=== PATIENT | female | born 1950 | race African-American/Black ===

== ENCOUNTER 2016-12-20 18:53 | Emergency (ER) | payer MEDICAID, OTHER ==
[~2016-12-20] VITALS: Ht 162.6 cm; Wt 68.0 kg
[~2016-12-20 18:53] MED LIST: LISI40TA4 PO
[2016-12-21 02:15] VITALS: BP 153/80
== END 2016-12-21 02:15 | disposition home or self-care (01) ==
LOC: ER 18:53
DX: I83.93 Asymptomatic varicose veins of bilateral lower extremities (principal); I10 Essential (primary) hypertension; J44.9 Chronic obstructive pulmonary disease, unspecified; F17.210 Nicotine dependence, cigarettes, uncomplicated
CPT/HCPCS: 93971; 99284

== ENCOUNTER 2017-07-03 15:17 | Inpatient (IN) | payer MEDICAID ==
[~2017-07-03] VITALS: Ht 162.6 cm; Wt 68.0 kg
[2017-07-03] MEDS ORDERED: LABETALOL 5MG/ML SYR 20 MG/4 ML SYRINGE IV ONE (17:15)
[2017-07-03 17:44] LABS: BASOPHILS % 1.2 % (0.0-2.0); HEMATOCRIT. 44.9 % (36.0-48.0); HEMOGLOBIN. 15.3 g/dL (12.0-16.0); MEAN CORPUSCULAR HEMOGLOBIN 32.7 pg (28.0-32.0); MEAN PLATELET VOLUME 11.9 fl (7.4-10.4); MONOCYTES % 6.4 % (2.0-8.0); NEUTROPHILS % 84.4 % (40.0-76.0); PLATELET 149 x1000/uL (130-400); RED BLOOD CELL COUNT 4.68 mill/uL (4.2-5.4); RED CELL DISTRIBUTION WIDTH 13.9 % (11.6-14.6)
[2017-07-03 17:49] LABS: CHLORIDE 102 mEq/L (98-107); PARTIAL THROMBOPLASTIN TIME 24.2 sec (23.4-31.0); PROTHROMBIN TIME 10.4 sec (9.4-11.6)
[2017-07-03 17:55] LABS: CARBON DIOXIDE 26 mEq/L (21-32); ETHANOL BLOOD < 10 mg/dL; PHOSPHORUS 3.4 mg/dL (2.5-4.9)
[2017-07-03 17:58] LABS: TROPONIN I < 0.02 ng/mL (0.00-0.04)
[2017-07-03 17:59] LABS: CREATINE KINASE MB FRACTION 1.4 ng/mL (0.5-3.6)
[2017-07-03] MEDS ORDERED: HYDROCODONE/ACETAMINOPHEN 5/325MG TABLET PO ONE (20:15)
[2017-07-03] MEDS ORDERED: CLONIDINE 0.1MG TABLET PO ONE (20:15)
[2017-07-03] MEDS ORDERED: HYDRALAZINE 20MG/ML VIAL IV ONE (20:15)
[2017-07-04] MEDS ORDERED: HYDROCODONE/ACETAMINOPHEN 5/325MG TABLET PO PRN ×2 (03:45→10:45)
[2017-07-04] MEDS: HYDROCODONE/ACETAMINOPHEN 5/325MG TABLET PO PRN ×2 (04:04→09:14)
[2017-07-04 07:25] VITALS: BP 138/94
[2017-07-04 08:00] VITALS: BP_SYST 134; BP_SYST 143; BP_SYST 168; BP_DIAS 61; BP_DIAS 86; BP_DIAS 89
[2017-07-04] MEDS ORDERED: DIPHENHYDRAMINE 50MG/ML VIAL IV PRN (10:45)
[2017-07-04] MEDS ORDERED: IPRATROPIUM/ALBUTEROL 0.5-3(2.5)MG/3ML NEB INH PRN (10:45)
[2017-07-04] MEDS ORDERED: CLONIDINE 0.1MG TABLET PO PRN (10:45)
[2017-07-04] MEDS ORDERED: ONDANSETRON HCL 4MG/2ML VIAL IV PRN (10:45)
[2017-07-04 12:00] VITALS: BP 126/74
[2017-07-04 13:39] LABS: *AMPHETAMINES SCREEN URINE NEGATIVE (NEGATIVE); *BARBITURATES SCREEN URINE NEGATIVE (NEGATIVE); *BENZODIAZEPINES SCREEN URINE NEGATIVE (NEGATIVE); *COCAINE SCREEN URINE NEGATIVE (NEGATIVE); CANNABINOID URINE SCREEN NEGATIVE (NEGATIVE); METHADONE URINE SCREEN NEGATIVE (NEGATIVE); OPIATES URINE SCREEN PRESUMTIVE POSITIVE (NEGATIVE); PHENCYCLIDINE URINE SCREEN NEGATIVE (NEGATIVE)
[2017-07-04 16:00] VITALS: BP 159/79
[2017-07-04] MEDS: ACETAMINOPHEN 325MG TABLET PO PRN (16:24)
[2017-07-04] MEDS: CEFTRIAXONE 1 G PREMIX 50 ML IV SCH ×2 (18:00→18:19)
[2017-07-04] MEDS: DILTIAZEM HCL 30MG TABLET PO SCH (18:03)
[2017-07-04 20:00] VITALS: BP 143/78
[2017-07-05] VITALS (7 sets, daily range): BP systolic 133–167; BP diastolic 69–103
[2017-07-05] MEDS: DILTIAZEM HCL 30MG TABLET PO SCH ×2 (00:42→06:42)
[2017-07-05] MEDS: HYDROCODONE/ACETAMINOPHEN 5/325MG TABLET PO PRN ×3 (03:50→20:30)
[2017-07-05 07:39] LABS: EOSINOPHILS % 2.7 % (0.0-5.0); HEMATOCRIT. 38.7 % (36.0-48.0); HEMOGLOBIN. 13.1 g/dL (12.0-16.0); MEAN CORPUSCULAR HEMOGLOBIN 32.5 pg (28.0-32.0); MEAN CORPUSCULAR VOLUME 95.8 fL (81.0-99.0); MEAN PLATELET VOLUME 12.2 fl (7.4-10.4); MONOCYTES % 11.2 % (2.0-8.0); NEUTROPHILS % 67.1 % (40.0-76.0); PLATELET 120 x1000/uL (130-400); RED BLOOD CELL COUNT 4.04 mill/uL (4.2-5.4)
[2017-07-05 07:55] LABS: CARBON DIOXIDE 25 mEq/L (21-32); CHLORIDE 102 mEq/L (98-107); HDL CHOLESTEROL 97 mg/dL (40-59); LDL CHOLESTEROL 68 mg/dL (5-100)
[2017-07-05] MEDS ORDERED: CLON0.2T PO (11:53)
[2017-07-05] MEDS: DILTIAZEM HCL 60MG TABLET PO SCH ×2 (13:07→21:11)
[2017-07-05] MEDS: ACETAMINOPHEN 325MG TABLET PO PRN (13:22)
[2017-07-05 20:08] LABS: HEPATITIS B SURFACE ANTIGEN NEGATIVE
[2017-07-05 20:36] LABS: HEPATITIS B CORE AB IGM NEGATIVE
[2017-07-05 20:37] LABS: HEPATITIS A AB IGM NEGATIVE (NEGATIVE)
[2017-07-06 00:18] VITALS: BP 125/65
[2017-07-06] MEDS: HYDROCODONE/ACETAMINOPHEN 5/325MG TABLET PO PRN ×2 (02:08→11:04)
[2017-07-06 04:00] VITALS: BP 124/67
[2017-07-06] MEDS: DILTIAZEM HCL 60MG TABLET PO SCH (05:06)
[2017-07-06 06:26] LABS: BASOPHILS % 1.4 % (0.0-2.0); EOSINOPHILS % 4.1 % (0.0-5.0); HEMATOCRIT. 38.8 % (36.0-48.0); HEMOGLOBIN. 13.2 g/dL (12.0-16.0); LYMPHOCYTES % 25.9 % (20.0-50.0); MEAN CORPUSCULAR HEMOGLOBIN 32.8 pg (28.0-32.0); MEAN CORPUSCULAR VOLUME 96.5 fL (81.0-99.0); MEAN PLATELET VOLUME 12.2 fl (7.4-10.4); MONOCYTES % 13.7 % (2.0-8.0); NEUTROPHILS % 54.9 % (40.0-76.0); RED BLOOD CELL COUNT 4.02 mill/uL (4.2-5.4)
[2017-07-06 06:49] LABS: CARBON DIOXIDE 27 mEq/L (21-32); CHLORIDE 102 mEq/L (98-107)
[2017-07-06 08:29] VITALS: BP_SYST 128; BP_SYST 131; BP_SYST 151; BP_DIAS 60; BP_DIAS 83; BP_DIAS 86
[2017-07-06 08:40] LABS: PLATELET ESTIMATE NORMAL
[2017-07-06 08:41] LABS: PLATELET 130 x1000/uL (130-400)
[2017-07-06 12:00] VITALS: BP 152/70
[2017-07-06 12:21] VITALS: BP 145/70
== END 2017-07-06 13:25 | disposition home or self-care (01) | DRG 48 ==
LOC: ER 16:33 → 7WST 17:26 → EDBEDREQ 17:30 → ENRESERV 21:58 → 7WST 07-04 06:14
PROVIDERS: ADMIT Internal Medicine; ATTEND Internal Medicine
DX: G90.8 Other disorders of autonomic nervous system (principal); D69.6 Thrombocytopenia, unspecified; R55 Syncope and collapse; I48.91 Unspecified atrial fibrillation; I10 Essential (primary) hypertension; J44.9 Chronic obstructive pulmonary disease, unspecified; I16.0 Hypertensive urgency; F10.10 Alcohol abuse, uncomplicated; D63.8 Anemia in other chronic diseases classified elsewhere; R07.81 Pleurodynia; F17.210 Nicotine dependence, cigarettes, uncomplicated; W19.XXXA Unspecified fall, initial encounter; Z71.6 Tobacco abuse counseling; Y93.89 Activity, other specified; Y92.89 Other specified places as the place of occurrence of the external cause; Y99.8 Other external cause status
CPT/HCPCS: 36415; 70450; 71010; 71100; 80048; 80053; 80061; 80305; 82553; 83010; 83735; 83880; 84100; 84484; 85025; 85610; 85730; 86705; 86709; 86803; 87040; 87086; 87186; 87340; 93005; 93306; 93970; 96374; 96375; 99285; 99406; G0482; J0360; J0696; J3490; J7050

== ENCOUNTER 2017-07-17 06:12 | Emergency (ER) | payer MEDICAID ==
[~2017-07-17] VITALS: Ht 170.2 cm; Wt 68.0 kg
[~2017-07-17 06:12] MED LIST changes: +CLON0.2T PO
[2017-07-17] MEDS ORDERED: SODIUM CHLORIDE 0.9% 1,000 ML IV ONE (06:54)
[2017-07-17] MEDS ORDERED: HYDROCODONE/ACETAMINOPHEN 5/325MG TABLET PO STA (06:54)
[2017-07-17 07:16] LABS: EOSINOPHILS % 11.1 % (0.0-5.0); HEMATOCRIT. 38.9 % (36.0-48.0); HEMOGLOBIN. 13.3 g/dL (12.0-16.0); LYMPHOCYTES % 24.2 % (20.0-50.0); MEAN CORPUSCULAR HEMOGLOBIN 32.6 pg (28.0-32.0); MEAN CORPUSCULAR VOLUME 95.7 fL (81.0-99.0); MEAN PLATELET VOLUME 9.2 fl (7.4-10.4); MONOCYTES % 6.7 % (2.0-8.0); PLATELET 332 x1000/uL (130-400); RED BLOOD CELL COUNT 4.06 mill/uL (4.2-5.4); RED CELL DISTRIBUTION WIDTH 13.1 % (11.6-14.6)
[2017-07-17 07:26] LABS: PROTHROMBIN TIME 10.9 sec (9.4-11.6)
[2017-07-17 07:31] LABS: CARBON DIOXIDE 23 mEq/L (21-32); CHLORIDE 109 mEq/L (98-107); TROPONIN I < 0.02 ng/mL (0.00-0.04)
[2017-07-17 08:10] LABS: GLUCOSE URINE NEGATIVE (NEGATIVE); KETONES URINE NEGATIVE (NEGATIVE); LEUKOCYTE ESTERASE URINE NEGATIVE (NEGATIVE); NITRITE URINE NEGATIVE (NEGATIVE); OCCULT BLOOD URINE NEGATIVE (NEGATIVE); PH URINE 5.5 (4.5-8.0); PROTEIN URINE NEGATIVE (NEGATIVE); SPECIFIC GRAVITY URINE 1.009 (1.005-1.030); UROBILINOGEN URINE 0.2 E.U./dL (0.2-1.0)
[2017-07-17 08:15] LABS: CLARITY URINE CLEAR (CLEAR); COLOR URINE PALE YELLOW (YELLOW)
[2017-07-17 10:30] VITALS: BP 148/88
== END 2017-07-17 10:32 | disposition home or self-care (01) ==
LOC: ER 08:06
DX: S22.42XA Multiple fractures of ribs, left side, initial encounter for closed fracture (principal); Y04.2XXA Assault by strike against or bumped into by another person, initial encounter; Y93.89 Activity, other specified; Y92.89 Other specified places as the place of occurrence of the external cause; F17.210 Nicotine dependence, cigarettes, uncomplicated; J90 Pleural effusion, not elsewhere classified
CPT/HCPCS: 36415; 71010; 71250; 80053; 81003; 83690; 83880; 84484; 85025; 85610; 87086; 93005; 93970; 96360; 99285; J7030; Z7610

== ENCOUNTER 2019-04-03 22:33 | Emergency (ER) | payer MEDICAID ==
[~2019-04-03] VITALS: Ht 170.2 cm; Wt 74.0 kg
[2019-04-03] MEDS ORDERED: ONDANSETRON HCL 4MG/2ML INJ IV ONE (23:45)
[2019-04-03] MEDS ORDERED: KETOROLAC 15MG/ML VIAL IV ONE (23:45)
[2019-04-03] MEDS ORDERED: PROPOFOL 200MG/20ML VIAL IV ONE (23:45)
[2019-04-04] MEDS ORDERED: ONDANSETRON HCL 4MG/2ML INJ IV ONE (01:45)
[2019-04-04 07:00] VITALS: BP 112/59
== END 2019-04-04 07:15 | disposition home or self-care (01) ==
LOC: ER 23:07
DX: S82.852A Displaced trimalleolar fracture of left lower leg, initial encounter for closed fracture (principal); I10 Essential (primary) hypertension; I25.10 Atherosclerotic heart disease of native coronary artery without angina pectoris; J44.9 Chronic obstructive pulmonary disease, unspecified; F17.210 Nicotine dependence, cigarettes, uncomplicated; W01.0XXA Fall on same level from slipping, tripping and stumbling without subsequent striking against object, initial encounter; Y93.9 Activity, unspecified; Y92.9 Unspecified place or not applicable; Z95.0 Presence of cardiac pacemaker
CPT/HCPCS: 27818; 73590; 73600; 73610; 73620; 96374; 96375; 96376; 99152; 99285; J1885; J2405; J2704; Z7610

== ENCOUNTER 2025-05-08 12:56 | Inpatient (IN) | payer MEDICAID, MEDICARE ==
[~2025-05-08] VITALS: Ht 162.6 cm; Wt 67.6 kg
[~2025-05-08 12:56] MED LIST changes: +ASPI-1497 PO; +ATOR-2 PO; +CALC-977 PO; -CLON0.2T PO; +COR3 PO; +ESCI20TA37 PO; +FOLI-43 PO; +LISI40TA13 PO; -LISI40TA4 PO; +SACU1TAB PO; +SPIR25TA PO
[2025-05-08 12:57] VITALS: O2SAT 100
[2025-05-08] MEDS: SODIUM CHLORIDE 0.9% 1,000 ML IV ONE (14:07)
[2025-05-08 14:13] LABS: BASOPHILS % 1.1 % (0.0-2.0); EOSINOPHILS % 0.1 % (0.0-5.0); HEMATOCRIT. 36.7 % (36.0-48.0); HEMOGLOBIN. 12.2 g/dL (12.0-16.0); LYMPHOCYTES % 16.4 % (20.0-50.0); MEAN PLATELET VOLUME 11.5 fl (7.4-10.4); MONOCYTES % 8.5 % (2.0-8.0); NEUTROPHILS % 73.9 % (40.0-76.0); PLATELET 103 x1000/uL (130-400); RED BLOOD CELL COUNT 3.86 mill/uL (4.2-5.4); RED CELL DISTRIBUTION WIDTH 13.6 % (11.6-14.6)
[2025-05-08 14:27] LABS: CREATININE 1.0 mg/dL (0.6-1.0); UREA NITROGEN BLOOD 11 mg/dL (9-23)
[2025-05-08 14:28] LABS: TROPONIN I HIGH SENSITIVITY 22 ng/L (3.0-34)
[2025-05-08 15:11] LABS: CLARITY URINE CLEAR (CLEAR); COLOR URINE YELLOW (YELLOW); GLUCOSE URINE NEGATIVE (NEGATIVE); KETONES URINE NEGATIVE (NEGATIVE); LEUKOCYTE ESTERASE URINE NEGATIVE (NEGATIVE); NITRITE URINE NEGATIVE (NEGATIVE); OCCULT BLOOD URINE NEGATIVE (NEGATIVE); PH URINE 8.5 (4.5-8.0); PROTEIN URINE NEGATIVE (NEGATIVE); SPECIFIC GRAVITY URINE 1.013 (1.005-1.030); UROBILINOGEN URINE 1.0 E.U./dL (0.2-1.0)
[2025-05-08 15:22] LABS: *AMPHETAMINES SCREEN URINE NEGATIVE (NEGATIVE); *BARBITURATES SCREEN URINE NEGATIVE (NEGATIVE); *BENZODIAZEPINES SCREEN URINE NEGATIVE (NEGATIVE); *COCAINE SCREEN URINE NEGATIVE (NEGATIVE)
[2025-05-08 15:23] LABS: CANNABINOID URINE SCREEN NEGATIVE (NEGATIVE); ECSTASY MDMA SCREEN URINE NEGATIVE (NEGATIVE); METHADONE URINE SCREEN NEGATIVE (NEGATIVE); OPIATES URINE SCREEN NEGATIVE (NEGATIVE); PHENCYCLIDINE URINE SCREEN NEGATIVE (NEGATIVE)
[2025-05-08 15:47] LABS: ETHANOL BLOOD < 10 mg/dL (<10)
[2025-05-08 15:48] LABS: ASPARTATE AMINOTRANSFERASE 24 IU/L (<34)
[2025-05-08 15:49] LABS: BILIRUBIN DIRECT 0.2 mg/dL (<=3.0); BILIRUBIN TOTAL 0.8 mg/dL (0.1-1.0); PROTEIN TOTAL 6.1 g/dL (6.0-8.3)
[2025-05-08 17:46] LABS: INR 1.1
[2025-05-08 18:28] VITALS: BP 98/53; PULSE 66; TEMP 36.3; O2SAT 95
[2025-05-08 20:00] VITALS: BP 90/60; PULSE 66; TEMP 34.7; O2SAT 96
[2025-05-08] MEDS ORDERED: ONDANSETRON HCL 4MG/2ML INJ IV PRN (20:45)
[2025-05-08] MEDS ORDERED: ACETAMINOPHEN 325MG TABLET PO PRN ×2 (20:45)
[2025-05-08] MEDS ORDERED: DOCUSATE SODIUM 100MG CAPSULE PO PRN (20:45)
[2025-05-08] MEDS ORDERED: HYDRALAZINE 20MG/ML VIAL IV PRN (20:45)
[2025-05-08] MEDS ORDERED: SENNOSIDES/DOCUSATE SOD 8.6/50MG TABLET PO PRN (20:45)
[2025-05-08] MEDS ORDERED: IPRATROPIUM/ALBUTEROL 0.5-3(2.5)MG/3ML NEB HHN PRN (21:00)
[2025-05-08 22:00] VITALS: BP 90/61; PULSE 66; RESP 18; TEMP 34.6944
[2025-05-08] MEDS: ATORVASTATIN CALCIUM 40MG TABLET PO SCH (23:06)
[2025-05-08] MEDS: SODIUM CHLORIDE 0.9% 500 ML IV ONE (23:06)
[2025-05-09] VITALS: BP 86/40; PULSE 56; RESP 18; TEMP 36.2; O2SAT 97
[2025-05-09 01:44] LABS: CREATINE KINASE MB FRACTION < 0.5 ng/mL (0.5-3.6); PHOSPHORUS 2.5 mg/dL (2.5-4.9); TROPONIN I HIGH SENSITIVITY 17 ng/L (3.0-34)
[2025-05-09 04:00] VITALS: BP 82/42; PULSE 55; RESP 17; TEMP 36.2; O2SAT 95
[2025-05-09] MEDS: MIDODRINE HCL 2.5MG TABLET PO NR (04:46)
[2025-05-09] MEDS ORDERED: ATROPINE SULFATE 1MG/10ML SYR IV PRN (06:30)
[2025-05-09] MEDS: MIDODRINE HCL 5MG TABLET PO SCH (06:30)
[2025-05-09] MEDS ORDERED: ALBUTEROL (0.083%) 2.5MG/3ML NEB HHN NR (06:45)
[2025-05-09 08:00] VITALS: BP_SYST 108; BP_SYST 87; BP_DIAS 51; BP_DIAS 58; PULSE 52; PULSE 97; RESP 15; RESP 18; TEMP 36.4; TEMP 36.5; O2SAT 95; O2SAT 96
[2025-05-09 08:17] LABS: BASOPHILS % 1.0 % (0.0-2.0); EOSINOPHILS % 1.2 % (0.0-5.0); HEMATOCRIT. 35.0 % (36.0-48.0); HEMOGLOBIN. 11.8 g/dL (12.0-16.0); LYMPHOCYTES % 28.2 % (20.0-50.0); MEAN PLATELET VOLUME 12.0 fl (7.4-10.4); MONOCYTES % 14.6 % (2.0-8.0); NEUTROPHILS % 55.0 % (40.0-76.0); PLATELET 97 x1000/uL (130-400); RED BLOOD CELL COUNT 3.72 mill/uL (4.2-5.4); RED CELL DISTRIBUTION WIDTH 13.7 % (11.6-14.6)
[2025-05-09] MEDS: SODIUM ZIRCONIUM CYCLOSILICATE 10GM/PACKET PO NR (08:17)
[2025-05-09] MEDS: PANTOPRAZOLE SODIUM 40 MG/VIAL IV SCH (08:17)
[2025-05-09] MEDS: SODIUM BICARBONATE 8.4% 50MEQ/50ML SYR IV NR (08:17)
[2025-05-09 08:36] LABS: CREATININE 0.9 mg/dL (0.6-1.0); TRIGLYCERIDE 49 mg/dL (0-150); UREA NITROGEN BLOOD 14 mg/dL (9-23)
[2025-05-09 08:37] LABS: CREATINE KINASE MB FRACTION < 0.5 ng/mL (0.5-3.6); LDL CHOLESTEROL 47 mg/dL (5-100); TROPONIN I HIGH SENSITIVITY 13 ng/L (3.0-34)
[2025-05-09 08:40] LABS: T4 FREE 1.06 ng/dL (0.89-1.76)
[2025-05-09 12:00] VITALS: BP 94/47; PULSE 59; RESP 18; TEMP 35.9; O2SAT 100
[2025-05-09] MEDS: SODIUM CHLORIDE 0.9% 1,000 ML IV SCH (12:03)
[2025-05-09] MEDS: SODIUM CHLORIDE 0.9% 500 ML IV ONE (15:01)
[2025-05-09 16:00] VITALS: BP 104/46; PULSE 51; RESP 18; TEMP 36.1; O2SAT 97
[2025-05-09] MEDS ORDERED: SACU1TAB MT (16:13)
[2025-05-09] MEDS ORDERED: SENN-289 PO (16:13)
[2025-05-09] MEDS ORDERED: CARV3.1242 MT (16:13)
[2025-05-09] MEDS ORDERED: BUPR-46 MT (16:14)
[2025-05-09 20:00] VITALS: BP 91/50; PULSE 63; RESP 20; TEMP 36; O2SAT 99
[2025-05-09] MEDS: ENOXAPARIN 30MG/0.3ML SYR SUBCUT SCH (20:13)
[2025-05-10] VITALS: BP 107/57; PULSE 50; RESP 19; TEMP 36.6; O2SAT 100
[2025-05-10 04:00] VITALS: BP 108/53; PULSE 50; RESP 19; TEMP 36.7; O2SAT 99
[2025-05-10 08:00] VITALS: BP 110/66; PULSE 55; RESP 17; TEMP 36.4; O2SAT 99
[2025-05-10 08:31] LABS: PLATELET 97 x1000/uL (130-400); RED BLOOD CELL COUNT 3.59 mill/uL (4.2-5.4); RED CELL DISTRIBUTION WIDTH 13.7 % (11.6-14.6)
[2025-05-10 08:39] LABS: CREATININE 1.0 mg/dL (0.6-1.0); UREA NITROGEN BLOOD 14 mg/dL (9-23)
[2025-05-10] MEDS ORDERED: MIDO10TA3 MT (10:04)
[2025-05-10 12:00] VITALS: BP 104/56; PULSE 57; RESP 17; TEMP 36.6; O2SAT 99
[2025-05-10 15:04] VITALS: BP 104/56; PULSE 57; RESP 16; TEMP 97.8
== END 2025-05-10 15:30 | disposition home or self-care (01) | DRG 312 ==
LOC: ER 12:56 → 6WST 15:25 → ENRESERV 16:52
PROVIDERS: ADMIT Internal Medicine; ATTEND Internal Medicine
DX: I95.2 Hypotension due to drugs (principal); R41.82 Altered mental status, unspecified; E11.9 Type 2 diabetes mellitus without complications; E78.00 Pure hypercholesterolemia, unspecified; F02.80 Dementia in other diseases classified elsewhere, unspecified severity, without behavioral disturbance, psychotic disturbance, mood disturbance, and anxiety; F17.210 Nicotine dependence, cigarettes, uncomplicated; G30.9 Alzheimer's disease, unspecified; I10 Essential (primary) hypertension; I25.10 Atherosclerotic heart disease of native coronary artery without angina pectoris; T50.995A Adverse effect of other drugs, medicaments and biological substances, initial encounter; J44.9 Chronic obstructive pulmonary disease, unspecified; Z79.899 Other long term (current) drug therapy; Z95.810 Presence of automatic (implantable) cardiac defibrillator; Y92.89 Other specified places as the place of occurrence of the external cause
CPT/HCPCS: 36415; 71045; 80048; 80061; 80076; 80305; 80320; 81003; 82140; 82550; 82553; 83605; 83735; 83880; 84100; 84145; 84439; 84443; 84484; 85025; 85027; 85379; 93005; 93970; 97162; 97165; 99285; J1650; J2470; J3490; J7030; G0480

== ENCOUNTER 2025-08-25 09:13 | Emergency (ER) | payer MEDICAID ==
[~2025-08-25] VITALS: Ht 157.5 cm; Wt 57.0 kg
[~2025-08-25 09:13] MED LIST changes: -ASPI-1497 PO; +BUPR-46 MT; -COR3 PO; -FOLI-43 PO; -LISI40TA13 PO; +MIDO10TA3 MT; -SACU1TAB PO; +SENN-289 PO; -SPIR25TA PO
[2025-08-25 09:21] VITALS: O2SAT 98
[2025-08-25 10:33] LABS: BASOPHILS % 1.1 % (0.0-2.0); EOSINOPHILS % 0.1 % (0.0-5.0); HEMATOCRIT. 44.2 % (36.0-48.0); HEMOGLOBIN. 14.5 g/dL (12.0-16.0); LYMPHOCYTES % 14.6 % (20.0-50.0); MEAN PLATELET VOLUME 11.5 fl (7.4-10.4); MONOCYTES % 6.1 % (2.0-8.0); NEUTROPHILS % 78.1 % (40.0-76.0); PLATELET 147 x1000/uL (130-400); RED BLOOD CELL COUNT 4.73 mill/uL (4.2-5.4); RED CELL DISTRIBUTION WIDTH 13.4 % (11.6-14.6)
[2025-08-25 11:14] LABS: CREATININE 0.9 mg/dL (0.6-1.0); UREA NITROGEN BLOOD 7 mg/dL (9-23)
[2025-08-25 12:03] LABS: TROPONIN I HIGH SENSITIVITY 24 ng/L (3.0-34)
[2025-08-25 12:18] LABS: ASPARTATE AMINOTRANSFERASE 42 IU/L (<34); BILIRUBIN DIRECT 0.3 mg/dL (<=3.0); BILIRUBIN TOTAL 0.9 mg/dL (0.1-1.0); PROTEIN TOTAL 7.1 g/dL (6.0-8.3)
[2025-08-25 14:04] VITALS: BP 129/76; PULSE 72; RESP 15; TEMP 36.8; O2SAT 100
== END 2025-08-25 14:04 | disposition home or self-care (01) ==
LOC: ER 09:13
DX: R40.4 Transient alteration of awareness (principal); I10 Essential (primary) hypertension; J44.9 Chronic obstructive pulmonary disease, unspecified; E78.00 Pure hypercholesterolemia, unspecified; Z79.899 Other long term (current) drug therapy
CPT/HCPCS: 36415; 80048; 80076; 82140; 83735; 84484; 85025; 93005; 99284